=== PATIENT | female | born 1985 | race African-American/Black ===

== ENCOUNTER 2019-04-03 14:31 | Emergency (ER) | payer OTHER ==
[2019-04-03 14:39] VITALS: TEMP 98.1; BMI 32.1
[2019-04-03] MEDS ORDERED: FAMOTIDINE 20 MG/50 ML IVPB 20 MG/50 ML MG IVPB ONE ×2 (15:55→16:14)
[2019-04-03] MEDS ORDERED: ONDANSETRON 4 MG/2 ML VIAL IVPUSH ONE (15:55)
[2019-04-03] MEDS ORDERED: ONDANSETRON 4 MG/2 ML VIAL ONE ×2 (16:14→16:33)
--- NOTE | 2019-04-03 16:16 | PDOC ---
*Physical Exam - Vital Signs Last Vital Signs Temp Pulse Resp BP Pulse Ox 98.1 F 78 16 141/108 H 97 04/03/19 14:36 04/03/19 14:36 04/03/19 14:36 04/03/19 14:36 04/03/19 14:36 ED Treatment Course - LABORATORY CBC & Chemistry Diagram: 04/03/19 16:20 04/03/19 16:20 Medical Decision Making - Medical Decision Making 04/03/19 16:29 34 yo F presenting with a complaint of abdominal pain S/p cholecystectomy P/w epigastric pain Will be sure pt has no evidence of retained stone Most likely abd pain related to gastritis Pt seen by Midlevel Provider under my direct supervision Ancillary studies pending Signed out to Dr. Elizabeth I agree with plan as outlined by Midlevel Provider 04/04/19 08:18 *DC/Admit/Observation/Transfer Diagnosis at time of Disposition: Epigastric pain - Discharge Dispostion Disposition: HOME Condition at time of disposition: Improved - Prescriptions Prescriptions: Famotidine [Pepcid] 20 mg PO DAILY #30 tablet Labetalol HCl 100 mg PO BID #60 tablet - Referrals Referrals: Cosme Prieto MD [Staff Physician] - 2 Days - Patient Instructions Printed Discharge Instructions: DI for Epigastric Pain Additional Instructions: Thank you for choosing [facility]. It was a pleasure taking care of you. Avoid fatty/fried foods Take Pepcid as directed Follow-up with GI doctor as directed Avoid NSAIDs like Motrin, Naprosyn, Alleve Return to the Emergency Department if your symptoms worsen or persist, you have fever, shortness of breath, chest pain, severe abdominal pain, vomiting or other concerning symptoms. - Post Discharge Activity
[2019-04-03] MEDS ORDERED: morphine CARPU-JECT 4 MG/1 ML DISP.SYRIN IVPUSH ONE (16:17)
[2019-04-03] MEDS ORDERED: morphine SULFATE 4 MG/ML VIAL ONE (16:33)
[2019-04-03 16:42] LABS: BASO % 0.4 % (0-2.0); EOS % 0.9 % (0-4.5); HEMOGLOBIN 12.4 GM/dL (10.7-15.3); LYMPH % 15.5 % (8-40); MCH 25.2 pg (25.7-33.7); MCHC 31.9 g/dl (32.0-36.0); MEAN CELL VOLUME 79.1 fl (80-96); MEAN PLT VOLUME 9.6 fl (7.5-11.1); MONO % 5.1 % (3.8-10.2); NEUT % 78.1 % (42.8-82.8); PLATELET COUNT 236 K/MM3 (134-434); RBC 4.92 M/mm3 (3.60-5.2); RDW 14.9 % (11.6-15.6); WHITE BLOOD COUNT 7.8 K/mm3 (4.0-10.0)
[2019-04-03 17:11] LABS: ALBUMIN 4.1 g/dl (3.4-5.0); BILIRUBIN,TOTAL 0.4 mg/dL (0.2-1); BLOOD UREA NITROGEN 10.2 mg/dL (7-18); CALCIUM 9.2 mg/dL (8.5-10.1); CREATININE 0.8 mg/dL (0.55-1.3); POTASSIUM 4.1 mmol/L (3.5-5.1)
[2019-04-03] MEDS ORDERED: ACETAMINOPHEN 1000 MG/100 ML VIAL (NON FORMULARY) IVPB ONE (17:50)
[2019-04-03] MEDS ORDERED: ACETAMINOPHEN INJECTION 100 ML IVPB ONE ×2 (18:26→18:51)
--- NOTE | 2019-04-03 19:15 | PDOC ---
History of Present Illness - General Chief Complaint: Pain, Acute Stated Complaint: ABD PAIN Time Seen by Provider: 04/03/19 15:37 History Source: Patient Exam Limitations: No Limitations Past History - Past Medical History Allergies/Adverse Reactions: Allergies Allergy/AdvReac Type Severity Reaction Status Date / Time Penicillins AdvReac Severe Hives Verified 04/03/19 14:39 Home Medications: Ambulatory Orders Oxycodone HCl/Acetaminophen [Percocet 5/325 -] 1 tab PO Q4H PRN #30 tablet 07/03 Labetalol HCl 100 mg PO DAILY #30 tablet 07/04/15 Famotidine [Pepcid] 20 mg PO DAILY #30 tablet 04/03/19 COPD: No Diabetes: No GI Disorders: Yes (NEWLY DISCOVERED PANCREATITIS) HTN: Yes - Reproductive History Polycystic Ovaries: No Tubal Ligation: No - Immunization History Immunization Up to Date: Yes - Suicide/Smoking/Psychosocial Hx Smoking Status: No Smoking History: Current every day smoker Have you smoked in the past 12 months: Yes Number of Cigarettes Smoked Daily: 3 Information on smoking cessation initiated: No 'Breaking Loose' booklet given: 02/06/16 Hx Alcohol Use: No Drug/Substance Use Hx: No Substance Use Type: None Hx Substance Use Treatment: No *Physical Exam - Vital Signs Last Vital Signs Temp Pulse Resp BP Pulse Ox 98.1 F 78 16 141/108 H 97 04/03/19 14:36 04/03/19 14:36 04/03/19 14:36 04/03/19 14:36 04/03/19 14:36 - Physical Exam General Appearance: No: Apparent Distress Respiratory/Chest: positive: Lungs Clear, Normal Breath Sounds. negative: Respiratory Distress Cardiovascular: positive: Regular Rhythm, Regular Rate, S1, S2. negative: Murmur Gastrointestinal/Abdominal: positive: Tender (epigastric region), Soft. negative: Distended, Guarding, Rebound, Hernia, Mass Musculoskeletal: negative: CVA Tenderness Neurologic: positive: Alert, Normal Mood/Affect ED Treatment Course - LABORATORY CBC & Chemistry Diagram: 04/03/19 16:20 04/03/19 16:20 - ADDITIONAL ORDERS Additional order review: Laboratory Results 04/03/19 04/03/19 16:20 16:20 Sodium 138 Potassium 4.1 Chloride 107 Carbon Dioxide 24 Anion Gap 7 L BUN 10.2 Creatinine 0.8 Est GFR (CKD-EPI)AfAm 111.48 Est GFR (CKD-EPI)NonAf 96.19 Random Glucose 82 Calcium 9.2 Total Bilirubin 0.4 AST 21 ALT 31 Alkaline Phosphatase 73 Total Protein 8.0 Albumin 4.1 Lipase 72 L Urine HCG, Qual Negative 04/03/19 16:20 RBC 4.92 MCV 79.1 L MCHC 31.9 L RDW 14.9 MPV 9.6 Neutrophils % 78.1 D Lymphocytes % 15.5 D Monocytes % 5.1 Eosinophils % 0.9 Basophils % 0.4 - RADIOLOGY Radiology Studies Ordered: Category Date Time Status ABDOMEN US -LIMITED [US] Stat Ultrasound 04/03/19 16:17 Completed - Medications Given in the ED: ED Medications Discontinued Medications Generic Name Dose Route Start Last Admin Trade Name Samy PRN Reason Stop Dose Admin Acetaminophen 1,000 mg 04/03/19 17:50 04/03/19 18:50 Ofirmev Injection - IVPB 04/03/19 17:51 1,000 mg ONCE ONE Administration Famotidine/Sodium Chloride 20 mg in 50 mls @ 100 mls/hr 04/03/19 15:55 16:31 Pepcid 20 Mg Premixed Ivpb - IVPB 04/03/19 16:24 100 mls/hr ONCE ONE Administration Morphine Sulfate 4 mg 04/03/19 16:17 04/03/19 16:31 Morphine Injection - IVPUSH 04/03/19 16:18 4 mg ONCE ONE Administration Ondansetron HCl 4 mg 04/03/19 15:55 04/03/19 16:31 Zofran Injection IVPUSH 04/03/19 15:56 4 mg ONCE ONE Administration Medical Decision Making - Medical Decision Making 34 y/o F hx of cholecystectomy 2013, , HTN prsents with epigastric pain burning /sharp in nature from today along with nausea, worse with eating food/drinking water. Patient states pain feels similar to when she had to get the gallbladder removed. Also had 2 very small episodes of loose stools. Denies fever, sob, cp, vomiting, urinary complaints. +smoker (3-4 cigs/day x10 years). Denies drug use. Drinks alcohol very infrequently. Labs unremarkable RUQ sono showed no acute findings; no CBD dilation Patient states pain improved from 10/10 to 4/10 Possible gastritis? Will refer to GI for further evaluation stable for dc 04/03/19 19:10 *DC/Admit/Observation/Transfer Diagnosis at time of Disposition: Epigastric pain - Discharge Dispostion Disposition: HOME Condition at time of disposition: Improved Decision to Admit order: No - Prescriptions Prescriptions: Famotidine [Pepcid] 20 mg PO DAILY #30 tablet - Referrals Referrals: Cosme Prieto MD [Staff Physician] - 2 Days - Patient Instructions Printed Discharge Instructions: DI for Epigastric Pain Additional Instructions: Thank you for choosing [facility]. It was a pleasure taking care of you. Avoid fatty/fried foods Take Pepcid as directed Follow-up with GI doctor as directed Avoid NSAIDs like Motrin, Naprosyn, Alleve Return to the Emergency Department if your symptoms worsen or persist, you have fever, shortness of breath, chest pain, severe abdominal pain, vomiting or other concerning symptoms. - Post Discharge Activity
[2019-04-03 21:43] VITALS: BP 156/104; PULSE 72
== END 2019-04-03 19:45 | disposition home or self-care (01) ==
LOC: JER 14:31
PROC: 3E033NZ Introduction of Analgesics, Hypnotics, Sedatives into Peripheral Vein, Percutaneous Approach (ICD-10-PCS; principal; 2019-04-03)
PROC: 3E033GC Introduction of Other Therapeutic Substance into Peripheral Vein, Percutaneous Approach (ICD-10-PCS; 2019-04-03)
DX: R10.13 Epigastric pain (principal); I10 Essential (primary) hypertension; F17.210 Nicotine dependence, cigarettes, uncomplicated
CPT/HCPCS: 36415; 76705-TC; 80053; 83690; 84703; 85025; 96365; 96375; 99283-25; J0131

== ENCOUNTER 2019-08-15 03:18 | Emergency (ER) | payer OTHER ==
[2019-08-15 03:55] VITALS: TEMP 98.1; BMI 27.3
--- NOTE | 2019-08-15 03:59 | PDOC ---
*Physical Exam - Vital Signs Last Vital Signs Temp Pulse Resp BP Pulse Ox 98.1 F 77 18 131/67 98 08/15/19 03:42 08/15/19 03:42 08/15/19 03:42 08/15/19 03:42 08/15/19 03:42 ED Treatment Course - LABORATORY CBC & Chemistry Diagram: 08/15/19 04:25 08/15/19 04:25 Medical Decision Making - Medical Decision Making 08/15/19 03:59 Patient seen by the advanced practice provider under my direct supervision. Ancillary testing reviewed as necessary. I agree with plan as outlined by the advanced practice provider. Discharge - Discharge Information Problems reviewed: Yes Clinical Impression/Diagnosis: Palpitations with regular cardiac rhythm Condition: Stable Disposition: HOME - Additional Discharge Information Prescriptions: Labetalol HCl [Normodyne -] 100 mg PO BID #60 tablet - Follow up/Referral Referrals: [facility] [Provider Group] [facility] [Provider Group] - Patient Discharge Instructions Patient Printed Discharge Instructions: Ambulatory Cardiac Monitoring, DI for Palpitations Additional Instructions: Discharge Instructions: You were seen in the emergency department for palpitations. Your heart rate was normal while you were in the ED, and your EKG did not show any abnormalities. Your blood tests also did not show any concerns. Your symptoms may be due to increased stress recently, but you should follow up with a carbon coating machine operator. You may need additional testing such as a heart monitor. Make an appointment to be seen within the next 1-2 weeks. Seek immediate care for worsening symptoms, chest pain, difficulty breathing, or any other medical emergency. - Post Discharge Activity Work/Back to School Note: Back to Work
--- NOTE | 2019-08-15 04:25 | PDOC ---
History of Present Illness - General Chief Complaint: Chest Pain Stated Complaint: PAIN/LT ARM, TINGLING Time Seen by Provider: 08/15/19 03:59 - History of Present Illness Initial Comments: Rosalinda Lou is a 34yo woman with a PMH of HTN who presents reporting feeling that her heart was racing this evening. She also reports associated mid-chest tightness and tingling in her hands and feet. Ms Lou states that she was laying in bed and felt her heart racing; she says that this has happened occasionally since her mother a few months ago. After several hours of feeling her heart racing, she began to become very concerned and also felt tightness in her chest, which has since resolved, as well as tingling in her hands and feet. She denies any associated difficulty breathing, lightheadedness , sweating, nausea/vomiting, or other symptoms. Ms Lou says that she has labetalol BID at home, but she usally only takes it once per day. She did not take the medication at all yesterday but took her evening dose overnight when she felt her heart was racing. Past History - Past Medical History Allergies/Adverse Reactions: Allergies Allergy/AdvReac Type Severity Reaction Status Date / Time Penicillins AdvReac Severe Hives Verified 08/15/19 03:47 Home Medications: Ambulatory Orders Labetalol HCl 100 mg PO BID #60 tablet 04/03/19 COPD: No Diabetes: No GI Disorders: Yes (NEWLY DISCOVERED PANCREATITIS) HTN: Yes - Reproductive History Polycystic Ovaries: No Tubal Ligation: No - Immunization History Immunization Up to Date: Yes - Psycho Social/Smoking Cessation Hx Smoking Status: No Smoking History: Never smoked Have you smoked in the past 12 months: Yes Number of Cigarettes Smoked Daily: 3 'Breaking Loose' booklet given: 02/06/16 Hx Alcohol Use: No Drug/Substance Use Hx: No Substance Use Type: None Hx Substance Use Treatment: No Review of Systems - Review of Systems Comments:: General: No fevers, no chills, no weight or appetite change, no malaise HEENT: No changes in vision, no changes in hearing, no congestion, no sore throat CV: No chest pain, no LE edema. See HPI Pulm: No SOB, no cough, no wheezing GI: No nausea or vomiting, no change in bowel habits, no melena : No frequency, no urgency, no dysuria Musc: No back pain, no joint swelling, no recent injury Skin: No rash, no lesions, no erythema Endo: No excessive thirst, no heat/cold intolerance Heme: No unusual bruising or bleeding, no swollen glands Neuro: No syncope, no numbness/tingling, no focal weakness Vasc: No claudication Psych: No recent change in mood, no SI or HI *Physical Exam - Vital Signs Last Vital Signs Temp Pulse Resp BP Pulse Ox 98.1 F 77 18 131/67 98 08/15/19 03:42 08/15/19 03:42 08/15/19 03:42 08/15/19 03:42 08/15/19 03:42 - Physical Exam General: Comfortable, no acute distress HEENT: PERRL, EOMI, MMM, voice normal, normal neck ROM, no LAD Cards: RRR, no murmur appreciated Pulm: Comfortable on room air, clear to auscultation bilaterally Abd: Soft, nontender, nondistended Ext: Atraumatic. No LE edema. ROM intact. WWP Skin: Normal color, no rashes or lesions Neuro: A&Ox3, CN grossly intact, normal speech, motor/sensory grossly intact and symmetric Psych: Mood appropriate to situation ED Treatment Course - LABORATORY CBC & Chemistry Diagram: 08/15/19 04:25 08/15/19 04:25 - RADIOLOGY Radiology Studies Ordered: Category Date Time Status CHEST PA & LAT [RAD] Stat Radiology 08/15/19 04:08 Ordered Medical Decision Making - Medical Decision Making 08/15/19 04:24 Rosalinda Lou is a 34yo woman with a PMH of HTN who presents reporting feeling that her heart was racing this evening. She reports noncompliance with her home labetalol. - Pt states she still feels her heart racing. HR was 64/min during exam. - May be anxiety, though pt states she took her labetelol prior to coming to the ED. Was possibly tachycardic previously - Tingling and chest tightness have resolved - Cardiac workup given chest tightness, though pt is young and does not have known cardiac pathology - EKG completed on arrival. NSR, HR61, normal axis, normal intervals, no t-wave or ST changes 08/15/19 06:39 - Labs unremarkable - Trop negative - BP now 146/93. HR in high 50's - Pt continues to be asymptomatic - Will d/c home with cardiology follow up Discussed with Dr Florence Douglas PGY2 Discharge - Discharge Information Problems reviewed: Yes Clinical Impression/Diagnosis: Palpitations with regular cardiac rhythm Condition: Stable Disposition: HOME - Admission No - Follow up/Referral Referrals: [facility] [Provider Group] [facility] [Provider Group] - Patient Discharge Instructions Patient Printed Discharge Instructions: DI for Palpitations, Ambulatory Cardiac Monitoring Additional Instructions: Discharge Instructions: You were seen in the emergency department for palpitations. Your heart rate was normal while you were in the ED, and your EKG did not show any abnormalities. Your blood tests also did not show any concerns. Your symptoms may be due to increased stress recently, but you should follow up with a ripshear operator. You may need additional testing such as a heart monitor. Make an appointment to be seen within the next 1-2 weeks. Seek immediate care for worsening symptoms, chest pain, difficulty breathing, or any other medical emergency. - Post Discharge Activity Work/Back to School Note: Back to Work
[2019-08-15 04:57] LABS: BASO % 0.9 % (0-2.0); EOS % 1.3 % (0-4.5); HEMATOCRIT 37.2 % (32.4-45.2); HEMOGLOBIN 11.9 GM/dL (10.7-15.3); LYMPH % 32.1 % (8-40); MCH 25.3 pg (25.7-33.7); MCHC 31.8 g/dl (32.0-36.0); MEAN CELL VOLUME 79.4 fl (80-96); MEAN PLT VOLUME 9.8 fl (7.5-11.1); MONO % 7.4 % (3.8-10.2); NEUT % 58.3 % (42.8-82.8); PLATELET COUNT 245 K/MM3 (134-434); RBC 4.69 M/mm3 (3.60-5.2); RDW 14.8 % (11.6-15.6); WHITE BLOOD COUNT 6.6 K/mm3 (4.0-10.0)
[2019-08-15 05:22] LABS: ALBUMIN 3.9 g/dl (3.4-5.0); BILIRUBIN,TOTAL 0.2 mg/dL (0.2-1); BLOOD UREA NITROGEN 6.5 mg/dL (7-18); CALCIUM 8.6 mg/dL (8.5-10.1); CREATININE 0.8 mg/dL (0.55-1.3); POTASSIUM 3.9 mmol/L (3.5-5.1)
[2019-08-15] MEDS ORDERED: LORazepam 2 MG/ML SDV VIAL ONE (05:41)
[2019-08-15 06:56] VITALS: BP 132/103; PULSE 64
--- NOTE | 2019-08-15 15:34 | EKG ---
Test Reason : Blood Pressure : / mmHG Vent. Rate : 061 BPM Atrial Rate : 061 BPM P-R Int : 158 ms QRS Dur : 082 ms QT Int : 416 ms P-R-T Axes : 058 052 041 degrees QTc Int : 418 ms NORMAL SINUS RHYTHM NORMAL ECG WHEN COMPARED WITH ECG OF 03-JUL-2015 09:33, NO SIGNIFICANT CHANGE WAS FOUND Confirmed by DEREK EID MD ([id number]) on 08/15/2019 3:34:04 PM Referred By: Confirmed By:DEREK EID MD
== END 2019-08-15 06:56 | disposition home or self-care (01) ==
LOC: JER 03:18
PROC: 3E033NZ Introduction of Analgesics, Hypnotics, Sedatives into Peripheral Vein, Percutaneous Approach (ICD-10-PCS; principal; 2019-08-15)
DX: I10 Essential (primary) hypertension (principal); Z88.0 Allergy status to penicillin; Z72.0 Tobacco use
CPT/HCPCS: 36415; 80053; 82550; 82553; 83735; 84484; 84703; 85025; 93005; 93010; 96374; 99284-25

== ENCOUNTER 2019-08-16 21:31 | Emergency (ER) | payer OTHER ==
--- NOTE | 2019-08-16 21:47 | PDOC ---
Rapid Medical Evaluation Chief Complaint: Chest Pain Time Seen by Provider: 08/16/19 21:43 Medical Evaluation: Allergies Allergy/AdvReac Type Severity Reaction Status Date / Time Penicillins AdvReac Severe Hives Verified 08/15/19 03:47 08/16/19 21:47 I performed a brief in-person evaluation of this patient. 34-year-old female smoker with HTN seen yesterday with CP and returns tonight for same. Describes pain as in middle of chest and traveling down left arm. Associated with SOB. No OCP use. Took extra labetolol today. Pertinent physical exam findings: Pain reproducible with palpation of mid sternum RRR, S1/S2. Lungs CTAB. No calf tenderness or LE edema. BP 160/115. I have ordered the following: EKG CXR Patient to proceed to ED for further evaluation. Discharge Disposition - Diagnosis Chest pain - Referrals - Patient Instructions - Post Discharge Activity
[2019-08-16 21:48] VITALS: BMI 32.1
--- NOTE | 2019-08-16 22:26 | PDOC ---
History of Present Illness - General Chief Complaint: Chest Pain Stated Complaint: CHEST PAIN Time Seen by Provider: 08/16/19 21:43 - History of Present Illness Initial Comments: Ms. Lou is a 34 y/o female with PMH significant for HTN (on labetalol) presenting today with chest pain. She was seen here on Tuesday for feeling like her heart was racing, and d/c home with PCP f/u after cardiac w/u. Her heart racing resolved yesterday. Reports that her chest pain started this morning gradually. Describes it as squeezing and shooting like pain. Reports associated lightheadedness. Pain radiates down her left arm and to her back and is worse with deep breathing. Pain is non-reproducible. Denies nausea/vomiting/shortness of breath. Denies abdominal pain. Denies headache. Denies cough. Denies recent illness or sick contacts. Denies travel or immobilization. Denies hormone or contraceptive use. Denies leg swelling. SocHx: smokes 4-5 cigarettes per day, social ETOH use, no cocaine or other drugs FamHx: no family hx of cardiac disease Past History - Past Medical History Allergies/Adverse Reactions: Allergies Allergy/AdvReac Type Severity Reaction Status Date / Time Penicillins AdvReac Severe Hives Verified 08/16/19 21:48 Home Medications: Ambulatory Orders Labetalol HCl 100 mg PO BID #60 tablet 04/03/19 Labetalol HCl [Normodyne -] 100 mg PO BID #60 tablet 08/15/19 COPD: No Diabetes: No GI Disorders: Yes HTN: Yes - Surgical History Cholecystectomy: Yes - Reproductive History Polycystic Ovaries: No Tubal Ligation: No - Immunization History Immunization Up to Date: Yes - Psycho Social/Smoking Cessation Hx Smoking Status: No Smoking History: Current every day smoker Have you smoked in the past 12 months: Yes Number of Cigarettes Smoked Daily: 3 Information on smoking cessation initiated: No 'Breaking Loose' booklet given: 02/06/16 Hx Alcohol Use: No Drug/Substance Use Hx: No Substance Use Type: None Hx Substance Use Treatment: No Review of Systems - Review of Systems Comments:: GENERAL/CONSTITUTIONAL: No fever or chills. No weakness._ HEAD, EYES, EARS, NOSE AND THROAT: No change in vision. No change in hearing. No sore throat._ CARDIOVASCULAR: Reports chest pain. No shortness of breath. RESPIRATORY: Denies cough, hemoptysis_ GASTROINTESTINAL: No nausea, vomiting, diarrhea or constipation._ GENITOURINARY: No dysuria, frequency, or change in urination._ MUSCULOSKELETAL: No joint or muscle swelling or pain. No neck or back pain._ SKIN: No rash_ NEUROLOGIC: Reports lightheadedness. No headache, vertigo, loss of consciousness , or change in strength/sensation._ ENDOCRINE: No increased thirst. No abnormal weight change_ HEMATOLOGIC/LYMPHATIC: No anemia, easy bleeding, or history of blood clots._ ALLERGIC/IMMUNOLOGIC: No hives or skin allergy._ *Physical Exam - Vital Signs Last Vital Signs Temp Pulse Resp BP Pulse Ox 98.1 F 73 17 133/86 100 08/17/19 03:56 08/17/19 03:56 08/16/19 21:44 08/17/19 03:56 08/17/19 03:56 - Physical Exam GENERAL: Awake, alert, and oriented to person/place/time, in no acute distress_ HEAD: No signs of trauma, normoc ephalic, atraumatic _ EYES: PERRLA, EOMI, sclera anicteric, conjunctiva clear_ ENT: Hearing grossly normal, nares patent, oropharynx clear without exudates. No uvular deviation. Moist mucosa_ NECK: Normal ROM, supple, no lymphadenopathy, JVD, or masses_ CHEST: No rash, lesions, bruising. No TTP to the chest wall. LUNGS: No distress, speaks in full sentences, clear to auscultation bilaterally _ HEART: Regular rate and rhythm, normal S1 and S2, no murmurs appreciated, peripheral pulses normal and equal bilaterally._ ABDOMEN: Soft, nontender, normoactive bowel sounds. No guarding, no rebound. No masses_ EXTREMITIES: Normal inspection, Normal range of motion, no lower extremity edema. No clubbing or cyanosis_ NEUROLOGICAL: Cranial nerves II through XII grossly intact. Normal speech, normal gait, no focal sensorimotor deficits _ SKIN: Warm, Dry, normal turgor, no rashes or lesions noted_ ED Treatment Course - LABORATORY CBC & Chemistry Diagram: 08/16/19 23:00 08/16/19 23:00 - ADDITIONAL ORDERS Additional order review: Laboratory Results 08/17/19 08/16/19 02:15 23:00 Creatine Kinase Index No Result Required. CK-MB (CK-2) < 1.0 Troponin I < 0.02 08/16/19 23:00 RBC 4.40 MCV 79.7 L MCHC 32.3 RDW 14.9 MPV 9.8 Neutrophils % 52.2 Lymphocytes % 37.8 Monocytes % 7.5 Eosinophils % 1.7 Basophils % 0.8 - Medications Given in the ED: ED Medications Discontinued Medications Generic Name Dose Route Start Last Admin Trade Name Samy PRN Reason Stop Dose Admin Acetaminophen 1,000 mg 08/17/19 00:43 08/17/19 01:15 Ofirmev Injection - IVPB 08/17/19 00:44 1,000 mg ONCE ONE Administration Ketorolac Tromethamine 15 mg 08/17/19 01:58 08/17/19 02:19 Toradol Injection - IVPUSH 08/17/19 01:59 15 mg ONCE ONE Administration Medical Decision Making - Medical Decision Making 08/16/19 22:41 34F presenting with chest pain radiating down her left arm and back, worse with inspiration. Evaluated on Tuesday for heart racing. PERC 0. HEART 2. -cbc, cmp, coags -ekg, trop, cxr -ua, upreg 08/16/19 23:08 EKG shows NSR, 68 bpm, no ST elevation/depression, no axis deviation. 08/16/19 23:56 Labs reviewed. Laboratory Last Values WBC 7.9 K/mm3 (4.0-10.0) 08/16/19 23:00 RBC 4.40 M/mm3 (3.60-5.2) 08/16/19 23:00 Hgb 11.3 GM/dL (10.7-15.3) 08/16/19 23:00 Hct 35.1 % (32.4-45.2) 08/16/19 23:00 MCV 79.7 fl (80-96) L 08/16/19 23:00 MCH 25.7 pg (25.7-33.7) 08/16/19 23:00 MCHC 32.3 g/dl (32.0-36.0) 08/16/19 23:00 RDW 14.9 % (11.6-15.6) 08/16/19 23:00 Plt Count 243 K/MM3 (134-434) 08/16/19 23:00 MPV 9.8 fl (7.5-11.1) 08/16/19 23:00 Absolute Neuts (auto) 4.1 K/mm3 (1.5-8.0) 08/16/19 23:00 Neutrophils % 52.2 % (42.8-82.8) 08/16/19 23:00 Lymphocytes % 37.8 % (8-40) 08/16/19 23: Monocytes % 7.5 % (3.8-10.2) 08/16/19 23: Eosinophils % 1.7 % (0-4.5) 08/16/19 23: Basophils % 0.8 % (0-2.0) 08/16/19: Nucleated RBC % 0 % (0-0) 08/16/19 23: PT with INR 12.60 SEC (9.7-13.0) 08/16/19 23:00 INR 1.07 (0.83-1.09) 08/16/19 23:00 Sodium 138 mmol/L (136-145) 08/16/19 23:00 Potassium 4.1 mmol/L (3.5-5.1) 08/16/19 23:00 Chloride 106 mmol/L (98-107) 08/16/19 23:00 Carbon Dioxide 26 mmol/L (21-32) 08/16/19 23:00 Anion Gap 6 MMOL/L (8-16) L 08/16/19 23:00 BUN 9.7 mg/dL (7-18) 08/16/19 23:00 Creatinine 0.8 mg/dL (0.55-1.3) 08/16/19 23:00 Est GFR (CKD-EPI)AfAm 111.48 08/16/19 23:00 Est GFR (CKD-EPI)NonAf 96.19 08/16/19 23:00 Random Glucose 87 mg/dL (74-106) 08/16/19 23:00 Calcium 8.6 mg/dL (8.5-10.1) 08/16/19 23:00 Total Bilirubin 0.2 mg/dL (0.2-1) 08/16/19 23:00 AST 18 U/L (15-37) 08/16/19 23:00 ALT 28 U/L (13-61) 08/16/19 23:00 Alkaline Phosphatase 70 U/L (45-117) 08/16/19 23:00 Creatine Kinase 171 U/L (26-192) 08/16/19 23:00 Troponin I < 0.02 ng/ml (0.00-0.05) 08/16/19 23:00 Total Protein 7.5 g/dl (6.4-8.2) 08/16/19 23: Albumin 3.7 g/dl (3.4-5.0) 08/16/19 23: Urine Color Yellow 08/16/19: Urine Appearance Clear 08/16/19: Urine pH 6.0 (5.0-8.0) 08/16/19: Ur Specific [place] 1.011 (1.010-1.035) 08/16/19: Urine Protein Negative (NEGATIVE) 08/16/19 23: Urine Glucose (UA) Negative (NEGATIVE) 08/16/19: Urine Ketones Negative (NEGATIVE) 08/16/19: Urine Blood 1+ (NEGATIVE) H 08/16/19: Urine Nitrite Negative (NEGATIVE) 08/16/19: Urine Bilirubin Negative (NEGATIVE) 08/16/19: Urine Urobilinogen 0.2 mg/dL (0.2-1.0) 08/16/19 23:29 Ur Leukocyte Esterase Negative (NEGATIVE) 08/16/19 23:29 Urine WBC (Auto) 1 /hpf (0-5) 08/16/19: Urine RBC (Auto) 1 /hpf (0-4) 08/16/19: Urine Casts (Auto) 0 /lpf (0-8) 08/16/19: U Epithel Cells (Auto) 2.6 /HPF (0-5/HPF) 08/16/19: Urine Bacteria (Auto) 51.9 /hpf (NEGATIVE) 08/16/19: Urine HCG, Qual Negative 08/16/19 23: HIV 1&2 Antibody Screen Negative 08/16/19 23:00 HIV P24 Antigen Negative 08/16/19 23:00 08/16/19 23:59 Pt signed out to Dr. Douglas. Discharge - Discharge Information Problems reviewed: Yes Clinical Impression/Diagnosis: Chest pain Qualifiers: Chest pain type: unspecified Qualified Code(s): R07.9 - Chest pain, unspecified Condition: Stable Disposition: HOME - Follow up/Referral Referrals: Thomas Clayton MD [Staff Physician] - Jaylene García MD [Staff Physician] - Alecia Reyna NP [Primary Care Provider] - - Patient Discharge Instructions Patient Printed Discharge Instructions: DI for Chest Pain Additional Instructions: Discharge Instructions: You were seen in the emergency department for chest pain. Your blood tests and EKG were normal. You also had a normal workup several days ago. Your symptoms are unlikely to be related to your heart. Your blood pressure was high while you were in the ED; make sure you continue to take your home medication and follow up as directed with your primary doctor. You may take acetaminophen (Tylenol) 650-1000mg every 6 hours as needed for pain. Seek immediate care for any worsening symptoms, severe pain, difficulty breathing, fainting, chest pain with exercise, or any other medical emergency. - Post Discharge Activity
--- NOTE | 2019-08-16 23:16 | PDOC ---
Attending Attestation - Resident Resident Name: Doyle Alexandra - ED Attending Attestation I have performed the following: I have examined & evaluated the patient, The case was reviewed & discussed with the resident, I agree w/resident's findings & plan, Exceptions are as noted - HPI HPI: 08/16/19 23:21 See resident HPI - Physicial Exam PE: 08/16/19 23:21 Agree with exam as documented by resident - Medical Decision Making 08/16/19 23:21 34F pmh HTN, describes typical cp, PERC 0, HEART 2 eval typical cp in low risk patient f/u labs, ekg, trend trop dispo per clinical course trop neg x2 Low risk patient, dc with f/u
[2019-08-16 23:24] LABS: BASO % 0.8 % (0-2.0); EOS % 1.7 % (0-4.5); HEMATOCRIT 35.1 % (32.4-45.2); HEMOGLOBIN 11.3 GM/dL (10.7-15.3); LYMPH % 37.8 % (8-40); MCH 25.7 pg (25.7-33.7); MCHC 32.3 g/dl (32.0-36.0); MEAN CELL VOLUME 79.7 fl (80-96); MEAN PLT VOLUME 9.8 fl (7.5-11.1); MONO % 7.5 % (3.8-10.2); NEUT % 52.2 % (42.8-82.8); PLATELET COUNT 243 K/MM3 (134-434); RDW 14.9 % (11.6-15.6); WHITE BLOOD COUNT 7.9 K/mm3 (4.0-10.0)
[2019-08-16 23:35] LABS: INR 1.07 (0.83-1.09); PROTHROMBIN TIME (PATIENT) 12.6 SEC (9.7-13.0)
[2019-08-16 23:40] LABS: EPI CELLS 2.6 /HPF (0-5/HPF); HYALINE CASTS 0 /lpf (0-8); URINE APPEARANCE CLEAR; URINE BACTERIA 51.9 /hpf (NEGATIVE); URINE BILIRUBIN NEGATIVE (NEGATIVE); URINE COLOR YELLOW; URINE GLUCOSE (UA) NEGATIVE (NEGATIVE); URINE KETONE NEGATIVE (NEGATIVE); URINE LEUK ESTERASE NEGATIVE (NEGATIVE); URINE NITRITE NEGATIVE (NEGATIVE); URINE PROTEIN NEGATIVE (NEGATIVE); URINE RBC 1 /hpf (0-4); URINE UROBILINOGEN 0.2 mg/dL (0.2-1.0); URINE WBC 1 /hpf (0-5)
[2019-08-16 23:53] LABS: ALBUMIN 3.7 g/dl (3.4-5.0); BILIRUBIN,TOTAL 0.2 mg/dL (0.2-1); BLOOD UREA NITROGEN 9.7 mg/dL (7-18); CALCIUM 8.6 mg/dL (8.5-10.1); CREATININE 0.8 mg/dL (0.55-1.3); POTASSIUM 4.1 mmol/L (3.5-5.1); TOT PROT 7.5 g/dl (6.4-8.2)
[2019-08-17] MEDS ORDERED: DEXAMETHASONE SOD PHOSPHATE 10 MG/1 ML VIAL ONE (00:13)
--- NOTE | 2019-08-17 00:27 | PDOC ---
*Physical Exam - Vital Signs Last Vital Signs Temp Pulse Resp BP Pulse Ox 97.8 F 69 17 154/98 100 08/16/19 21:44 08/16/19 21:44 08/16/19 21:44 08/16/19 22:59 08/16/19 21:44 ED Treatment Course - LABORATORY CBC & Chemistry Diagram: 08/16/19 23:00 08/16/19 23:00 - ADDITIONAL ORDERS Additional order review: Laboratory Results 08/16/19 08/16/19 08/16/19 23:29 23:29 23:00 PT with INR 12.60 INR 1.07 Sodium Potassium Chloride Carbon Dioxide Anion Gap BUN Creatinine Est GFR (CKD-EPI)AfAm Est GFR (CKD-EPI)NonAf Random Glucose Calcium Total Bilirubin AST ALT Alkaline Phosphatase Creatine Kinase Creatine Kinase Index CK-MB (CK-2) Troponin I Total Protein Albumin Urine Color Yellow Urine Appearance Clear Urine pH 6.0 Ur Specific [place] 1.011 Urine Protein Negative Urine Glucose (UA) Negative Urine Ketones Negative Urine Blood 1+ H Urine Nitrite Negative Urine Bilirubin Negative Urine Urobilinogen 0.2 Ur Leukocyte Esterase Negative Urine WBC (Auto) 1 Urine RBC (Auto) 1 Urine Casts (Auto) 0 U Epithel Cells (Auto) 2.6 Urine Bacteria (Auto) 51.9 Urine HCG, Qual Negative 08/16/19 08/16/19 23:00 23:00 PT with INR INR Sodium 138 Potassium 4.1 Chloride 106 Carbon Dioxide 26 Anion Gap 6 L BUN 9.7 Creatinine 0.8 Est GFR (CKD-EPI)AfAm 111.48 Est GFR (CKD-EPI)NonAf 96.19 Random Glucose 87 Calcium 8.6 Total Bilirubin 0.2 AST 18 ALT 28 Alkaline Phosphatase 70 Creatine Kinase 171 Creatine Kinase Index No Result Required. CK-MB (CK-2) < 1.0 Troponin I < 0.02 Total Protein 7.5 Albumin 3.7 Urine Color Urine Appearance Urine pH Ur Specific [place] Urine Protein Urine Glucose (UA) Urine Ketones Urine Blood Urine Nitrite Urine Bilirubin Urine Urobilinogen Ur Leukocyte Esterase Urine WBC (Auto) Urine RBC (Auto) Urine Casts (Auto) U Epithel Cells (Auto) Urine Bacteria (Auto) Urine HCG, Qual 08/16/19 23:00 RBC 4.40 MCV 79.7 L MCHC 32.3 RDW 14.9 MPV 9.8 Neutrophils % 52.2 Lymphocytes % 37.8 Monocytes % 7.5 Eosinophils % 1.7 Basophils % 0.8 Medical Decision Making - Medical Decision Making 08/17/19 00:24 Sign out received from Dr Ibrahima Schwabnorris Lou is a 34yo woman with a PMH of HTN, seen yesterday for racing heart with negative cardiac workup, who re-presents today now reporting stabbing chest pain that radiates to her left arm and back, associated lightheadedness. ED course so far notable for: - Labs unremarkable. Trop negative - EKG w/ HR 68, normal axis, normal intervals, no t-wave or ST changes - Dispo pending 2nd troponin at 02:00 08/17/19 03:11 - Repeat trop negative - d/c home with cardiology and PMD follow up Discussed with Dr Wiley Douglas PGY2 Discharge - Discharge Information Problems reviewed: Yes Clinical Impression/Diagnosis: Chest pain Qualifiers: Chest pain type: unspecified Qualified Code(s): R07.9 - Chest pain, unspecified Condition: Stable Disposition: HOME - Admission No - Follow up/Referral Referrals: Thomas Clayton MD [Staff Physician] - Jaylene García MD [Staff Physician] - Alecia Reyna NP [Primary Care Provider] - - Patient Discharge Instructions Patient Printed Discharge Instructions: DI for Chest Pain Additional Instructions: Discharge Instructions: You were seen in the emergency department for chest pain. Your blood tests and EKG were normal. You also had a normal workup several days ago. Your symptoms are unlikely to be related to your heart. Your blood pressure was high while you were in the ED; make sure you continue to take your home medication and follow up as directed with your primary doctor. You may take acetaminophen (Tylenol) 650-1000mg every 6 hours as needed for pain. Seek immediate care for any worsening symptoms, severe pain, difficulty breathing, fainting, chest pain with exercise, or any other medical emergency. - Post Discharge Activity
[2019-08-17] MEDS ORDERED: ACETAMINOPHEN 1000 MG/100 ML VIAL (NON FORMULARY) IVPB ONE (00:43)
[2019-08-17] MEDS ORDERED: ACETAMINOPHEN INJECTION 100 ML IVPB ONE (01:16)
[2019-08-17] MEDS ORDERED: KETOROLAC TROMETHAMINE 15 MG/ML VIAL IVPUSH ONE (01:58)
[2019-08-17] MEDS ORDERED: KETOROLAC TROMETHAMINE 15 MG/ML VIAL ONE (02:03)
[2019-08-17 03:57] VITALS: BP 133/86; PULSE 73; TEMP 98.1
--- NOTE | 2019-08-17 13:26 | EKG ---
Test Reason : Blood Pressure : / mmHG Vent. Rate : 068 BPM Atrial Rate : 068 BPM P-R Int : 160 ms QRS Dur : 090 ms QT Int : 416 ms P-R-T Axes : 054 050 031 degrees QTc Int : 442 ms NORMAL SINUS RHYTHM POSSIBLE LEFT ATRIAL ENLARGEMENT INCOMPLETE RBBB NONSPECIFIC ST ABNORMALITY WHEN COMPARED WITH ECG OF 15-AUG-2019 03:32, NO SIGNIFICANT CHANGE WAS FOUND Confirmed by SERGEY PETERSEN MD ([id number]) on 08/17/2019 1:25:39 PM Referred By: Confirmed By:SERGEY PETERSEN MD
== END 2019-08-17 04:13 | disposition home or self-care (01) ==
LOC: JER 21:31
PROC: 3E033NZ Introduction of Analgesics, Hypnotics, Sedatives into Peripheral Vein, Percutaneous Approach (ICD-10-PCS; principal; 2019-08-16)
PROC: 3E0333Z Introduction of Anti-inflammatory into Peripheral Vein, Percutaneous Approach (ICD-10-PCS; 2019-08-16)
DX: R07.9 Chest pain, unspecified (principal); I10 Essential (primary) hypertension; F17.210 Nicotine dependence, cigarettes, uncomplicated; Z88.0 Allergy status to penicillin
CPT/HCPCS: 36415; 71046-TC-FY; 80053; 81003; 82550; 82553; 84484; 84703; 85025; 85610; 87389; 93005; 93010; 99283-25; J0131

== ENCOUNTER 2019-11-25 20:00 | Emergency (ER) | payer OTHER ==
[2019-11-25 20:09] VITALS: PULSE 70; BMI 32.1
--- NOTE | 2019-11-25 20:10 | PDOC ---
History of Present Illness - General Chief Complaint: Chest Pain Stated Complaint: CHEST PAIN Time Seen by Provider: 11/25/19 20:07 - History of Present Illness Initial Comments: 11/25/19 20:34 34 y/o F hx of HTN presents to the ED with 3 days of intemittent chest pain. Pain occurs both at rest and with exertion. Pain initillyl pressure like in nature, but today is left sided, throbbing and radiating down her left arm. Pain somewhat relived by burping. She endorses associated palpitations and smoking marijuana today. She denies nausea, vomiting, diaphoresis, hx of blood clots, recent surgeries, hormone or contraceptive use, unilateral leg swelling. fevers, chills, cough. ROS: GENERAL/CONSTITUTIONAL: No fever or chills. No weakness. HEAD, EYES, EARS, NOSE AND THROAT: No change in vision. No ear pain or discharge. No sore throat. CARDIOVASCULAR: chest pain . RESPIRATORY: No cough, wheezing, or hemoptysis. GASTROINTESTINAL: No nausea, vomiting, diarrhea or constipation. GENITOURINARY: No dysuria, frequency, or change in urination. MUSCULOSKELETAL: No joint or muscle swelling or pain. No neck or back pain. SKIN: No rash NEUROLOGIC: +lightheaded. ENDOCRINE: No increased thirst. No abnormal weight change HEMATOLOGIC/LYMPHATIC: No anemia, easy bleeding, or history of blood clots. ALLERGIC/IMMUNOLOGIC: No hives or skin allergy. PE: GENERAL: Awake, alert, and fully oriented, uncomfortable HEAD: No signs of trauma, normocephalic, atraumatic EYES: EOMI, sclera anicteric, conjunctiva clear ENT: Auricles normal inspection, hearing grossly normal, nares patent, oropharynx clear without exudates. Moist mucosa NECK: Normal ROM, supple, no lymphadenopathy, JVD, or masses LUNGS: No distress, speaks full sentences, clear to auscultation bilaterally HEART: Regular rate and rhythm, normal S1 and S2, no murmurs, rubs or gallops, peripheral pulses normal and equal bilaterally. ABDOMEN: Soft, nontender, normoactive bowel sounds. No guarding, no rebound. No masses EXTREMITIES : Normal inspection, Normal range of motion, no edema. No clubbing or cyanosis NEUROLOGICAL: Cranial nerves II through XII grossly intact. Normal speech,no focal sensorimotor deficits SKIN: Warm, Dry, normal turgor, no rashes or lesions noted Past History - Past Medical History Allergies/Adverse Reactions: Allergies Allergy/AdvReac Type Severity Reaction Status Date / Time Penicillins AdvReac Severe Hives Verified 08/16/19 21:48 Home Medications: Ambulatory Orders Labetalol HCl 100 mg PO BID #60 tablet 04/03/19 Labetalol HCl [Normodyne -] 100 mg PO BID #60 tablet 08/15/19 COPD: No Diabetes: No GI Disorders: Yes HTN: Yes - Surgical History Cholecystectomy: Yes - Reproductive History Polycystic Ovaries: No Tubal Ligation: No - Immunization History Immunization Up to Date: Yes - Psycho Social/Smoking Cessation Hx Smoking Status: No Smoking History: Unknown if ever smoked Have you smoked in the past 12 months: Yes Number of Cigarettes Smoked Daily: 3 'Breaking Loose' booklet given: 02/06/16 Hx Alcohol Use: No Drug/Substance Use Hx: No Substance Use Type: None Hx Substance Use Treatment: No *Physical Exam - Vital Signs Last Vital Signs Temp Pulse Resp BP Pulse Ox 98.7 F 70 20 171/101 H 100 11/25/19 20:02 11/25/19 20:02 11/25/19 20:02 11/25/19 20:02 11/25/19 20:02 ED Treatment Course - LABORATORY CBC & Chemistry Diagram: 11/25/19 20:55 11/25/19 20:55 Medical Decision Making - Medical Decision Making 11/25/19 20:41 34 y/o F hx of HTN presents to the ED with 3 days of intermittent chest pain. was supposed to follow up with radio equipment repairer after last visit but unable to due to covid related schedule changes. ddx: acs, pneumonia, p.e , pneumothorax, workup: cbc, cmp, cardiac profile, pt/inr/ptt, ekg, cxr tylenol 11/25/19 21:18 ekg: NSR, Normal EKG no st elevations. 11/25/19 22:36 Labs unremarkable, patients pain mildly improved CXR:NO acute findings 11/25/19 22:50 Discharge - Discharge Information Problems reviewed: Yes Clinical Impression/Diagnosis: Chest pain Qualifiers: Chest pain type: unspecified Qualified Code(s): R07.9 - Chest pain, unspecified Condition: Improved - Admission No - Follow up/Referral Referrals: Edgar Pichardo MD [Staff Physician] - Thomas Clayton MD [Staff Physician] - - Patient Discharge Instructions Patient Printed Discharge Instructions: DI for Chest Pain Additional Instructions: If you have any worsening of symptoms or any other concerns please return to the ED immediately. Return if worsening symptoms including fevers, , vomiting, abdominal pain, chest pain, shortness of breath, inability to take things by mouth/vomiting, or worsening concerning symptoms. we have given you a referrral to a radio equipment repairer, follow up with them in the next few days. follow up with your primary care provider within the next few days as well. - Post Discharge Activity
[2019-11-25] MEDS ORDERED: ACETAMINOPHEN 1000 MG/100 ML VIAL (NON FORMULARY) IVPB ONE (20:26)
--- NOTE | 2019-11-25 21:02 | PDOC ---
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 She has been at home out of work with her 9 and 10 year old children. Pt quit smoking 1 week ago. Pt smoked some pot today and after a bit felt racing heart and left arm pain and although she has had this in the past, todays pain is the worst she ever felt. - Physicial Exam PE: 11/25/19 22:01 Overweight Heart and lungs normal Abd soft NT ND no flank pain Pt has no edema of her legs. - Medical Decision Making 11/25/19 22:31 CXR is clear 11/25/19 22:33 HCG is negative; labs are normal Pt will have repeat cardiac enzyme at midnight Her EKG is NSR. 11/26/19 01:25 2nd trop is normal vitals normal Pt feeling better and she will be discharged home. Heart Score/ECG Review - ECG Intrepretation Rhythm: Regular Rhythm - [place]: Normal - P and IA Prominent R with upright T in V1 (true posterior MN): No Delta Wave(s) Present: No WPW: No - QRS Poor R Wave Progression: No Q Wave Present: No - ST and T Early Repolarization: No Non Specific ST-T Wave changes: No Flattened T Waves: No Prolonged Q-T Interval: No - ECG Impressions Normal ECG: Yes Non-specific ST Elevation: No Ischemic Changes: No Bradycardia: No Torsades javon Pointes: No WPW: No Discharge - Discharge Information Problems reviewed: Yes Clinical Impression/Diagnosis: Chest pain Qualifiers: Chest pain type: unspecified Qualified Code(s): R07.9 - Chest pain, unspecified Condition: Improved - Additional Discharge Information Prescriptions: Aspirin [Aspirin EC] 325 mg PO Q4H PRN #30 tablet.dr PRN Reason: CHEST PAIN Lidocaine 5% Patch [Lidoderm -] 1 patch TP DAILY #7 patch - Follow up/Referral Referrals: Thomas Clayton MD [Staff Physician] - Edgar Pichardo MD [Staff Physician] - - Patient Discharge Instructions Patient Printed Discharge Instructions: DI for Chest Pain Additional Instructions: If you have any worsening of symptoms or any other concerns please return to the ED immediately. Return if worsening symptoms including fevers, , vomiting, abdominal pain, chest pain, shortness of breath, inability to take things by mouth/vomiting, or worsening concerning symptoms. we have given you a referrral to a liquor tester, follow up with them in the next few days. follow up with your primary care provider within the next few days as well. - Post Discharge Activity
[2019-11-25] MEDS ORDERED: ACETAMINOPHEN INJECTION 100 ML IVPB ONE (21:15)
[2019-11-25 21:26] LABS: BASO % 1.4 % (0-2.0); EOS % 1.6 % (0-4.5); HEMATOCRIT 36.4 % (32.4-45.2); HEMOGLOBIN 11.6 GM/dL (10.7-15.3); LYMPH % 29.1 % (8-40); MCH 25.1 pg (25.7-33.7); MCHC 31.9 g/dl (32.0-36.0); MEAN CELL VOLUME 78.6 fl (80-96); MEAN PLT VOLUME 9.9 fl (7.5-11.1); MONO % 8.3 % (3.8-10.2); NEUT % 59.6 % (42.8-82.8); PLATELET COUNT 253 K/MM3 (134-434); RBC 4.63 M/mm3 (3.60-5.2); RDW 14.5 % (11.6-15.6)
[2019-11-25 21:52] LABS: INR 0.93 (0.83-1.09)
[2019-11-25 21:55] LABS: ACTIVATED PTT 30.7 SECONDS (25.2-36.5)
[2019-11-25 22:01] LABS: BLOOD UREA NITROGEN 7.4 mg/dL (7-18); GLUCOSE,RANDOM 98 mg/dL (74-106)
[2019-11-25 22:02] LABS: BILIRUBIN,TOTAL < 0.1 mg/dL (0.2-1); CALCIUM 8.6 mg/dL (8.5-10.1); CHLORIDE 110 mmol/L (98-107); CO2 22 mmol/L (21-32); CREATININE 0.8 mg/dL (0.55-1.3); POTASSIUM 4.1 mmol/L (3.5-5.1); SGOT/AST 22 U/L (15-37); SGPT/ALT 40 U/L (13-61); SODIUM 138 mmol/L (136-145); TOT PROT 7.9 g/dl (6.4-8.2)
[2019-11-25 22:03] LABS: ALK PHOS 70 U/L (45-117)
[2019-11-25] MEDS ORDERED: FAMOTIDINE 20 MG/50 ML IVPB 20 MG/50 ML MG IVPB ONE ×2 (22:28→22:57)
[2019-11-26 01:13] LABS: ANION GAP 6 MMOL/L (8-16)
[2019-11-26 02:18] VITALS: BP 137/100; TEMP 97.6
--- NOTE | 2019-11-27 10:30 | EKG ---
Test Reason : Blood Pressure : / mmHG Vent. Rate : 066 BPM Atrial Rate : 066 BPM P-R Int : 154 ms QRS Dur : 076 ms QT Int : 396 ms P-R-T Axes : 046 036 024 degrees QTc Int : 415 ms NORMAL SINUS RHYTHM NORMAL ECG Confirmed by MD GINNY, GAVIN ([id number]) on 11/27/2019 10:29:47 AM Referred By: Confirmed By:GAVIN GROSS MD
== END 2019-11-26 02:26 | disposition home or self-care (01) ==
LOC: JER 20:00
PROC: 3E033GC Introduction of Other Therapeutic Substance into Peripheral Vein, Percutaneous Approach (ICD-10-PCS; principal; 2019-11-25)
DX: R07.9 Chest pain, unspecified (principal)
CPT/HCPCS: 36415; 71045-TC-FY; 80053; 82550; 82553; 84484; 84703; 85025; 85610; 85730; 93005; 93010; 96365; 96375; 99285-25; J0131

== ENCOUNTER 2020-09-24 04:40 | Day surgery (SDC) | payer OTHER ==
[2020-09-22 19:17] VITALS: BMI 29.2
[2020-09-24] MEDS ORDERED: DEXAMETHASONE SOD PHOSPHATE/PF 10 MG/ML SDV ONE (07:17)
[2020-09-24] MEDS ORDERED: ROPIVACAINE HCL 0.5% 30ML VIAL ONE (07:17)
[2020-09-24] MEDS ORDERED: MIDAZOLAM HCL 2 MG/2 ML SINGLE DOSE VIAL ONE ×2 (07:24)
[2020-09-24] MEDS ORDERED: PROPOFOL 20 ML ONE ×4 (07:53→08:37)
[2020-09-24] MEDS ORDERED: ceFAZolin SODIUM 1 GM VIAL IVPB ONE (08:10)
[2020-09-24] MEDS ORDERED: ONDANSETRON 4 MG/2 ML VIAL IVPUSH PRN (09:39)
[2020-09-24] MEDS ORDERED: oxyCODONE HCL 5 MG TABLET PO PRN (09:39)
[2020-09-24] MEDS ORDERED: LACTATED RINGERS SOLUTION 1,000 ML IV SCH (09:45)
[2020-09-24] MEDS ORDERED: oxyCODONE HCL 5 MG TABLET ONE (11:17)
[2020-09-24 15:00] VITALS: BP 124/72; PULSE 74; TEMP 97.8
== END 2020-09-24 13:45 | disposition home or self-care (01) ==
LOC: JASU-SURG 04:40
PROVIDERS: ATTEND Orthopaedic Surgery
PROC: 0MM24ZZ Reattachment of Left Shoulder Bursa and Ligament, Percutaneous Endoscopic Approach (ICD-10-PCS; principal; 2020-09-24 08:00)
DX: S43.432A Superior glenoid labrum lesion of left shoulder, initial encounter (principal); X58.XXXA Exposure to other specified factors, initial encounter; Y93.9 Activity, unspecified; Y92.9 Unspecified place or not applicable; Y99.9 Unspecified external cause status
CPT/HCPCS: 81025; 94760

== ENCOUNTER 2021-02-04 10:14 | Emergency (ER) | payer OTHER ==
[2021-02-04 10:39] VITALS: BMI 35.9
[2021-02-04 12:09] VITALS: BP 115/75; PULSE 90; TEMP 97.8
== END 2021-02-04 13:15 | disposition home or self-care (01) ==
LOC: JER 10:14
DX: O26.892 Other specified pregnancy related conditions, second trimester (principal); R10.9 Unspecified abdominal pain; Z3A.20 20 weeks gestation of pregnancy
CPT/HCPCS: 99281-25

== ENCOUNTER 2021-05-06 21:40 | Emergency (ER) | payer OTHER ==
[2021-05-06 21:56] VITALS: BMI 39.1
[2021-05-06] MEDS ORDERED: BETAMET ACET/BETAMET NA PH 30 MG/5 ML VIAL IM ONE (23:30)
[2021-05-06] MEDS ORDERED: BETAMET ACET/BETAMET NA PH 30 MG/5 ML VIAL ONE (23:41)
[2021-05-07 00:26] LABS: BASO % 0.5 % (0-2.0); EOS % 1.7 % (0-4.5); HEMATOCRIT 32.3 % (32.4-45.2); HEMOGLOBIN 10.5 GM/dL (10.7-15.3); LYMPH % 24.6 % (8-40); MCH 25.8 pg (25.7-33.7); MCHC 32.5 g/dl (32.0-36.0); MEAN CELL VOLUME 79.3 fl (80-96); MONO % 10.8 % (3.8-10.2); NEUT % 62.4 % (42.8-82.8); PLATELET COUNT 229 10^3/uL (134-434); RBC 4.07 M/mm3 (3.60-5.2); RDW 16.6 % (11.6-15.6); WHITE BLOOD COUNT 7.3 K/mm3 (4.0-10.0)
[2021-05-07 00:39] LABS: INR 0.92 (0.83-1.09); PROTHROMBIN TIME (PATIENT) 11.3 SEC (9.7-13.0)
[2021-05-07 00:42] LABS: ACTIVATED PTT 26.5 SECONDS (25.2-36.5)
[2021-05-07 00:48] LABS: CALCIUM 8.3 mg/dL (8.5-10.1)
[2021-05-07 00:49] LABS: ALBUMIN 2.3 g/dl (3.4-5.0); BLOOD UREA NITROGEN 4.3 mg/dL (7-18)
[2021-05-07 00:52] LABS: CREATININE 0.4 mg/dL (0.55-1.3)
[2021-05-07 00:54] LABS: BILIRUBIN,TOTAL 0.2 mg/dL (0.2-1); TOT PROT 6.3 g/dl (6.4-8.2)
[2021-05-07 01:01] VITALS: TEMP 98.1
[2021-05-07] MEDS ORDERED: NIFEdipine 10 MG CAPSULE (FP) PO ONE (02:40)
[2021-05-07] MEDS ORDERED: NIFEdipine 10 MG CAPSULE (FP) ONE (02:50)
[2021-05-07 06:49] VITALS: BP 162/102; PULSE 80
== END 2021-05-07 06:20 | disposition home or self-care (01) ==
LOC: JER 21:40
PROC: 3E023GC Introduction of Other Therapeutic Substance into Muscle, Percutaneous Approach (ICD-10-PCS; principal; 2021-05-06)
DX: O16.3 Unspecified maternal hypertension, third trimester (principal); Z3A.33 33 weeks gestation of pregnancy
CPT/HCPCS: 36415; 80053; 85025; 85610; 85730; 86780; 86850; 86900; 86901; 99284-25